=== PATIENT | female | born 1995 | race Caucasian/White ===

== ENCOUNTER 2020-04-15 18:56 | Emergency (ER) | payer MEDICAID ==
[~2020-04-15] VITALS: Ht 172.7 cm; Wt 113.4 kg
[2020-04-15 19:50] LABS: BASO % 0.3 % (0.0-1.0); EOS # 0.1 10*3/uL (0.0-0.4); EOS % 0.6 % (1.0-4.0); HEMATOCRIT 38.6 % (37.0-47.0); LYMPH # 2.3 10*3/uL (1.3-4.4); LYMPH % 25.8 % (27.0-41.0); MEAN CELL VOLUME 84.6 fl (81.0-99.0); MEAN CORPUSCULAR HGB 28.3 pg (27.0-31.0); MEAN CORPUSCULAR HGB CONC 33.4 g/dl (33.0-37.0); MEAN PLATELET VOLUME 8.5 fl (9.6-12.3); MONO # 0.4 10*3/uL (0.1-1.0); MONO % 4.9 % (3.0-9.0); NEUT # 6.1 10*3/uL (2.3-7.9); NEUT % 68.2 % (47.0-73.0); PLATELET COUNT AUTOMATED 267 10*3/uL (130-400); RED BLOOD COUNT 4.56 10*6/uL (4.10-5.10)
[2020-04-15 20:06] LABS: ALBUMIN 3.1 gm/dl (3.1-4.5); ALKALINE PHOSPHATASE 62 U/L (45-117); BUN 8 mg/dl (7-24); CHLORIDE 106 mmol/L (98-107); CREATININE 0.72 mg/dL (0.55-1.02); POTASSIUM 3.7 mmol/L (3.5-5.1); SGOT/AST 18 IU/L (3-35); SGPT/ALT 19 U/L (12-78); SODIUM 139 mmol/L (136-145); TOTAL PROTEIN 7.2 gm/dL (6.4-8.2)
[2020-04-15 20:10] LABS: ACETAMINOPHEN (TYLENOL) < 5.0 ug/ml (10-30); ETHYL ALCOHOL < 3.0 mg/dl (<3)
[2020-04-15 20:37] LABS: CLARITY CLEAR (CLEAR); COLOR YELLOW (YELLOW)
[2020-04-15 20:38] LABS: BILIRUBIN NEGATIVE (NEGATIVE); BLOOD NEGATIVE (NEGATIVE); GLUCOSE NEGATIVE (NEGATIVE); KETONE NEGATIVE (NEGATIVE); NITRITE NEGATIVE (NEGATIVE); UROBILINOGEN 0.2 E.U./dl (0.2-1.0)
[2020-04-15 20:43] LABS: LEUKO ESTERASE NEGATIVE (NEGATIVE)
[2020-04-15 20:44] LABS: BACTERIA TRACE; MUCOUS 1+; RBC 0-2 rbc/hpf (0-2); WBC 0-2 wbc/hpf (0-5)
[2020-04-15 20:47] LABS: URINE AMPHETAMINES < 1000 (1000ng/ml); URINE BARBITURATES < 200 (200ng/ml); URINE BENZODIAZEPINES < 200 (200ng/ml); URINE CANNABINOIDS (THC) < 50 (50ng/ml); URINE COCAINE < 300 (300ng/ml); URINE METHADONE < 300 (300ng/ml); URINE OPIATES < 300 (300ng/ml); URINE PHENCYCLIDINE < 25 (25ng/ml)
== END 2020-04-16 10:00 | disposition home or self-care (01) ==
LOC: ED 18:56
PROVIDERS: Nurse Practitioner Family
DX: F43.21 Adjustment disorder with depressed mood (principal); F32.9 Major depressive disorder, single episode, unspecified

== ENCOUNTER 2020-05-09 14:17 | Emergency (ER) | payer MEDICAID ==
[~2020-05-09] VITALS: Ht 175.2 cm; Wt 113.4 kg
[2020-05-09] MEDS ORDERED: PREDNISONE20 M1 PO (14:37)
== END 2020-05-09 14:42 | disposition home or self-care (01) ==
LOC: ED 14:17
DX: L23.7 Allergic contact dermatitis due to plants, except food (principal)

== ENCOUNTER 2020-05-31 12:48 | Emergency (ER) | payer MEDICAID ==
[~2020-05-31] VITALS: Ht 175.2 cm; Wt 113.4 kg
[~2020-05-31 12:48] MED LIST: PREDNISONE20 M1 PO
[2020-05-31] MEDS ORDERED: LIDEX 0.05% CRE15 GM T ×2 (13:04→13:11)
[2020-05-31] MEDS ORDERED: PREDNISONE20 M1 PO ×2 (13:08→13:12)
== END 2020-05-31 13:30 | disposition home or self-care (01) ==
LOC: ED 12:48
DX: L25.9 Unspecified contact dermatitis, unspecified cause (principal); F32.9 Major depressive disorder, single episode, unspecified

== ENCOUNTER 2021-01-14 10:05 | Emergency (ER) | payer OTHER ==
[~2021-01-14] VITALS: Wt 127.0 kg
[~2021-01-14 10:05] MED LIST changes: +LIDEX 0.05% CRE15 GM T
[2021-01-14] MEDS ORDERED: ESTARYLLA 0.251 EACH PO (10:22)
[2021-01-14] MEDS ORDERED: TYLENOL325 M1 PO (11:02)
[2021-01-14] MEDS ORDERED: CYCLOBENZAPRINE10 MG PO (11:02)
[2021-01-14] MEDS ORDERED: NAPROXEN250 MG PO (11:02)
== END 2021-01-14 11:10 | disposition home or self-care (01) ==
LOC: ED 10:05
DX: M54.5 Low back pain (principal); Z79.899 Other long term (current) drug therapy; Z87.891 Personal history of nicotine dependence

== ENCOUNTER 2021-05-22 13:17 | Emergency (ER) | payer OTHER ==
[~2021-05-22] VITALS: Ht 172.7 cm; Wt 127.0 kg
[~2021-05-22 13:17] MED LIST changes: +CYCLOBENZAPRINE10 MG PO; +ESTARYLLA 0.251 EACH PO; +NAPROXEN250 MG PO; +TYLENOL325 M1 PO
[2021-05-22] MEDS ORDERED: METHOCARBAMOL500 M1 PO (16:49)
[2021-05-22] MEDS ORDERED: PREDNISONE20 M1 PO (16:49)
[2021-05-22 16:50] LABS: BILIRUBIN Negative (Negative); BLOOD 1+ (Negative); CLARITY Cloudy (Clear); COLOR Yellow (Yellow); GLUCOSE Negative (Negative); KETONE Negative (Negative); LEUKO ESTERASE 2+ (Negative); NITRITE Negative (Negative); SPECIFIC GRAVITY 1.025 (1.001-1.030)
[2021-05-22 17:19] LABS: BACTERIA 3+; EPITHELIAL CELLS TNTC; RBC 16-20 rbc/hpf (0-2); WBC 16-20 wbc/hpf (0-5)
[2021-05-22] MEDS ORDERED: SEPTDS PO (17:32)
== END 2021-05-22 17:45 | disposition home or self-care (01) ==
LOC: ED 13:17
PROVIDERS: Physician Assistant
DX: M54.31 Sciatica, right side (principal); R30.0 Dysuria; Z79.899 Other long term (current) drug therapy

== ENCOUNTER → 2021-11-15 | Outpatient (CLI) | payer OTHER ==
[~2021-11-15] MED LIST changes: +METHOCARBAMOL500 M1 PO; +SEPTDS PO
[2021-11-15 13:30] LABS: HEMATOCRIT 39.5 % (37.0-47.0); MEAN CELL VOLUME 84.4 fl (81.0-99.0); MEAN CORPUSCULAR HGB 27.6 pg (27.0-31.0); MEAN CORPUSCULAR HGB CONC 32.7 g/dl (33.0-37.0); MEAN PLATELET VOLUME 8.8 fl (9.6-12.3); RED BLOOD COUNT 4.68 10*6/uL (4.10-5.10); RED CELL DISTRI WIDTH 13.5 % (0-14.5); WHITE BLOOD COUNT 6.5 10*3/uL (4.8-10.8)
[2021-11-15 13:49] LABS: ALBUMIN 3.1 gm/dl (3.1-4.5); ALKALINE PHOSPHATASE 69 U/L (45-117); BUN 10 mg/dl (7-24); CHLORIDE 106 mmol/L (98-107); CHOLESTEROL 157 mg/dL (<200); CREATININE 0.66 mg/dL (0.55-1.02); FREE T4 0.81 ng/dl (0.76-1.46); LDL CHOLESTEROL 52 mg/dL (9-159); POTASSIUM 3.8 mmol/L (3.5-5.1); SGOT/AST 17 IU/L (3-35); SGPT/ALT 32 U/L (12-78); SODIUM 137 mmol/L (136-145); TOTAL PROTEIN 7.2 gm/dL (6.4-8.2); TRIGLYCERIDES 97 mg/dl (<150)
[2021-11-17 01:06] LABS: TESTOSTERONE FREE, (DIRECT) 0.7 pg/mL (0.0-4.2)
== END | disposition home or self-care (01) ==
LOC: LAB 12:57
PROVIDERS: ATTEND Family Medicine
DX: Z00.00 Encounter for general adult medical examination without abnormal findings (principal); E74.00 Glycogen storage disease, unspecified; F41.1 Generalized anxiety disorder; R63.5 Abnormal weight gain; E28.2 Polycystic ovarian syndrome

== ENCOUNTER 2021-12-05 09:48 | Emergency (ER) | payer OTHER ==
[2021-12-05] MEDS ORDERED: CYCLOBENZAPRINE10 MG PO (10:07)
[2021-12-05] MEDS ORDERED: NAPROXEN250 MG PO (10:07)
[2021-12-05] MEDS ORDERED: TYLENOL325 M1 PO (10:07)
== END 2021-12-05 10:19 | disposition home or self-care (01) ==
LOC: ED 09:48
DX: M54.50 Low back pain, unspecified (principal); R30.9 Painful micturition, unspecified; Z79.899 Other long term (current) drug therapy

== ENCOUNTER 2022-01-30 19:36 | Emergency (ER) | payer OTHER ==
[~2022-01-30] VITALS: Ht 177.8 cm; Wt 127.0 kg
[2022-01-30] MEDS ORDERED: NYSTATIN CREAM15 GM T (20:41)
== END 2022-01-30 21:00 | disposition home or self-care (01) ==
LOC: ED 19:36
DX: L30.4 Erythema intertrigo (principal); Z79.899 Other long term (current) drug therapy

== ENCOUNTER 2022-04-06 09:54 | Emergency (ER) | payer OTHER ==
[~2022-04-06] VITALS: Ht 172.7 cm; Wt 136.1 kg
[~2022-04-06 09:54] MED LIST changes: +NYSTATIN CREAM15 GM T
[2022-04-06] MEDS ORDERED: CYCLOBENZAPRINE10 MG PO (10:15)
[2022-04-06] MEDS ORDERED: PREDNISONE50 MG PO (10:15)
== END 2022-04-06 10:45 | disposition home or self-care (01) ==
LOC: ED 09:54
DX: S39.012A Strain of muscle, fascia and tendon of lower back, initial encounter (principal); Z79.899 Other long term (current) drug therapy; X58.XXXA Exposure to other specified factors, initial encounter; Y93.89 Activity, other specified; Y92.89 Other specified places as the place of occurrence of the external cause; Y99.8 Other external cause status

== ENCOUNTER 2023-10-15 16:08 | Emergency (ER) | payer SELFPAY ==
[~2023-10-15 16:08] MED LIST changes: +PREDNISONE50 MG PO
== END 2023-10-15 20:03 | disposition left against medical advice (07) ==
LOC: ED 16:08
DX: M54.50 Low back pain, unspecified (principal); M25.559 Pain in unspecified hip; Z53.21 Procedure and treatment not carried out due to patient leaving prior to being seen by health care provider

== ENCOUNTER → 2024-05-20 | Outpatient (CLI) | payer OTHER | END | disposition home or self-care (01) | LOC: RAD 14:51 | PROVIDERS: ATTEND Nurse Practitioner | DX: M25.562 Pain in left knee (principal); M79.672 Pain in left foot; M79.605 Pain in left leg ==

== ENCOUNTER 2024-06-12 23:10 | Emergency (ER) | payer OTHER ==
[~2024-06-12] VITALS: Ht 175.2 cm; Wt 127.0 kg
[2024-06-12] MEDS ORDERED: SODIUM CHLORIDE 0.9% 1,000 ML IV ONE (23:45)
[2024-06-12 23:59] LABS: BASO % 0.3 % (0.0-1.0); EOS # 0.1 10*3/uL (0.0-0.4); EOS % 0.7 % (1.0-4.0); HEMATOCRIT 36.9 % (37.0-47.0); LYMPH # 2.2 10*3/uL (1.3-4.4); LYMPH % 29.2 % (27.0-41.0); MEAN CELL VOLUME 87.2 fl (81.0-99.0); MEAN CORPUSCULAR HGB 28.4 pg (27.0-31.0); MEAN CORPUSCULAR HGB CONC 32.5 g/dl (33.0-37.0); MEAN PLATELET VOLUME 8.7 fl (9.6-12.3); MONO # 0.5 10*3/uL (0.1-1.0); MONO % 6.9 % (3.0-9.0); NEUT # 4.7 10*3/uL (2.3-7.9); NEUT % 62.6 % (47.0-73.0); PLATELET COUNT AUTOMATED 230 10*3/uL (130-400); RED BLOOD COUNT 4.23 10*6/uL (4.10-5.10); RED CELL DISTRI WIDTH 13.5 % (0-14.5); WHITE BLOOD COUNT 7.5 10*3/uL (4.8-10.8)
[2024-06-13] MEDS ORDERED: IOHEXOL 300 MG/ML 100 ML VIAL IV ONE (00:05)
[2024-06-13 00:13] LABS: BILIRUBIN Negative (Negative); BLOOD Negative (Negative); CLARITY Clear (Clear); COLOR Yellow (Yellow); GLUCOSE Negative (Negative); KETONE Trace (Negative); LEUKO ESTERASE 1+ (Negative); NITRITE Negative (Negative); PH 6.5 (4.5-8.0); SPECIFIC GRAVITY >= 1.030 (1.001-1.030)
[2024-06-13] MEDS ORDERED: IOHEXOL 300 MG/ML 100 ML VIAL ONE (00:23)
[2024-06-13 00:29] LABS: ALKALINE PHOSPHATASE 67 U/L (46-116); BUN 8 mg/dl (9-23); CHLORIDE 108 mmol/L (98-107); LIPASE 45 U/L (12-53); POTASSIUM 3.8 mmol/L (3.4-5.1); SGPT/ALT 22 U/L (5-49)
[2024-06-13 00:45] LABS: BACTERIA TRACE
[2024-06-13] MEDS ORDERED: MG-AL HYDROXIDE/SIMETICONE 30 ML UDC PO STA (01:25)
[2024-06-13] MEDS ORDERED: Dicyclomine Hydrochloride 20 MG/10 ML OSYR PO STA (01:25)
[2024-06-13] MEDS ORDERED: Lidocaine Hydrochloride 15 ML UDC PO STA (01:25)
[2024-06-13] MEDS ORDERED: PEPCID AC10 M2 PO (02:47)
== END 2024-06-13 02:54 | disposition home or self-care (01) ==
LOC: ED 23:10
PROVIDERS: Internal Medicine
DX: K21.9 Gastro-esophageal reflux disease without esophagitis (principal); R11.2 Nausea with vomiting, unspecified

== ENCOUNTER 2024-11-15 09:24 | Emergency (ER) | payer OTHER ==
[~2024-11-15] VITALS: Wt 117.9 kg
[~2024-11-15 09:24] MED LIST changes: +PEPCID AC10 M2 PO
[2024-11-15] MEDS ORDERED: PREDNISONE20 M1 PO (11:38)
[2024-11-15] MEDS ORDERED: AMOX-CLAV 875-1 EACH PO (11:38)
== END 2024-11-15 16:13 | disposition home or self-care (01) ==
LOC: ED 09:24
DX: J40 Bronchitis, not specified as acute or chronic (principal); H66.91 Otitis media, unspecified, right ear; Z79.899 Other long term (current) drug therapy